=== PATIENT | male | born 1985 | race Caucasian/White ===

== ENCOUNTER 2018-10-18 16:58 | Emergency (ER) | payer OTHER, SELFPAY ==
[2018-10-18 17:09] VITALS: BP 127/80; PULSE 80; RESP 18; TEMP 36.8; O2SAT 96
[2018-10-18 17:27] VITALS: RESP 4
[2018-10-18] MEDS: Albuterol/Ipratropium 3 ML UPD VIAL (17:27)
--- NOTE | 2018-10-18 17:28 | ED.GENADUL_ITS ---
Discharge Plan Disposition Patient Disposition: HOME Condition: Improving Discharge Details Chief Complaint: RespSymp Clinical Impression: URI (upper respiratory infection), Asthma exacerbation, mild Primary Care Provider: Gary Hayes ED Provider: Luis A Ziegler Home Meds and New Rx's Prescriptions: New benzonatate 200 mg capsule 200 mg PO TID PRN (Reason: cough) Qty: 30 RF: 0 prednisone 20 mg tablet 40 mg PO DAILY 4 Days Qty: 8 RF: 0 Continued ProAir HFA 8.5 GM HFA aerosol inhaler 2 puff IN PRN PRNRF: 0 Advair Diskus 250-50 mcg/dose Blister With Device 1 inh INHALATION BID RF: 0 Discharge Instructions Instructions: Asthma (ED), Upper Respiratory Infection (ED) Additional Instructions: If you begin running a fever, have worsening shortness of breath or difficulty breathing, or any worsening symptoms feel free to return to the emergency department for reassessment. Otherwise continue to use your inhalers and take medication as prescribed. Follow-up with your primary care provider if not improving over the next week Referrals: Gary Hayes [Primary Care Provider] - (As needed for reassessment) Discharge Data Discharge Date/Time-TO BE ENTERED AT DEPARTURE: 10/18/18 17:54 Medical Decision Making Patient presenting the emergency department chief complaint of asthma attack. Patient states that on Sunday he started having cold-like symptoms which has now turned into just some sinus pressure and drainage but then today while at work he started noticing some shortness of breath and difficulty breathing. He states that this occurs very frequently with his asthma. He reports that he is used his rescue inhaler significantly throughout the day and used Advair after work which seems to have some improvement but still feeling some tightness in his chest. Patient denies any fever chills, rash, nausea vomiting. Physical exam is consistent with upper respiratory tract infection and mild asthma exacerbation otherwise there is no nuchal rigidity, patient is not septic or toxic in appearance, afebrile, no signs of hypoxia or tachycardia at this time. Patient treated with DuoNeb, which improved his slight expiratory wheezing, and given burst of steroids for total of 5 days. Patient was encouraged to return for any new or worsening symptoms such as fever, worsening shortness of breath, or not improving over the next week otherwise to follow-up with primary care provider as needed for reassessment. After discussion of diagnosis and plan of care patient has no further needs, questions, or concerns and states clear understanding to return to the emergency department for any worsening symptoms. HPI General Mode of arrival: ambulatory . Date/Time Provider Initiated Documentation: 10/18/18 17:27 . Limitations to Documentation: no limitations . Information obtained by: patient and RN notes reviewed . History of Present Illness 33 year old M presents to the emergency department with the chief comp laint of Asthma attack, described as moderate, Quality is described as other (Denies pain or comfort), Patient started experiencing this day(s) (1) and it has been constant. No relieving factors improve symptom(s), No exacerbating factors reported . Patient did receive the following treatments prior to arrival, none Related Data Home Medications Medication Instructions Recorded Confirmed ProAir HFA 2 puff IN PRN PRN 04/29/18 10/18/18 Advair Diskus 1 inh INHALATION BID 10/18/18 10/18/18 benzonatate 200 mg PO TID PRN #30 cap 10/18/18 prednisone 40 mg PO DAILY 4 Days #8 tab 10/18/18 Previous Rx's Medication Instructions Recorded benzonatate 200 mg PO TID PRN #30 cap 10/18/18 prednisone 40 mg PO DAILY 4 Days #8 tab 10/18/18 Allergies Allergy/AdvReac Type Severity Reaction Status Date / Time pollen extracts Allergy Unverified 10/18/18 17:16 General Stated Complaint: RespSymp NICK: 3 Review of Systems Constitutional Denies chills and Reports fever(s) ENT Denies otalgia, Reports nasal congestion, Reports sinus pressure and Reports sore throat Cardiovascular Reports dyspnea Respiratory Denies change in phlegm color, Reports cough, Denies pain with cough and Reports dyspnea Gastrointestinal Denies nausea and Denies vomiting Musculoskeletal Denies joint swelling Integumentary/Breasts Denies rash [facility] Medical History Asthma (Chronic) Social History Smoking/Tobacco Use Status: Never Exam Const General: cooperative, comfortable and no acute distress Orientation: alert, awake and oriented x3 HENMT Head: normal to inspection Ears: hearing grossly normal bilaterally, external ears normal and TM's normal bilaterally Face and sinus: normal facial exam and sinuses nontender Mouth: oral mucosae normal and tongue normal Throat: posterior oropharynx normal, tonsils normal and uvula midline Eyes General: appearance normal, both eyes and all related structures Conjunctivae: conjunctivae normal Sclera: sclerae normal Neck Neck: normal visual inspection, full ROM, no lymphadenopathy, meningismus present and no JVD Resp Effort & Inspection: normal respiratory effort, able to speak in complete sent ences, no audible wheezes, cough Quality of cough: actively coughing and not labored Auscultation: wheezes expiratory wheezes (mild-diffuse) Cardio Rate: regular rate Rhythm: regular rhythm Heart Sounds: S1 normal and S2 normal Skin General skin exam: no rashes or lesions noted and dry skin Rashes: no rashes Neuro General: alert, awake, oriented x3 and gait normal Course Vital Signs Temperature 36.8 C 10/18/18 17:09 Pulse 80 10/18/18 17:09 Respiratory Rate 18 10/18/18 17:09 Blood Pressure 127/80 10/18/18 17:09 Pulse Oximetry 96 10/18/18 17:09 Temperature 36.8 C 10/18/18 17:09 Temperature Source Temporal Artery Scan 10/18/18 17:09 Pulse 80 10/18/18 17:09 Respiratory Rate 18 10/18/18 17:09 Respiratory Effort Nasal Flaring 10/18/18 17:15 Respiratory Depth Normal 10/18/18 17:15 Blood Pressure 127/80 10/18/18 17:09 Blood Pressure Position Sitting 10/18/18 17:09 Pulse Oximetry 96 10/18/18 17:09 Oxygen Delivery Method Room Air 10/18/18 17:09 Oxygen Flow Rate 0 10/18/18 17:09 Pain Level 0 10/18/18 17:09
[2018-10-18] MEDS: predniSONE 20 MG TAB 60 MG PO (17:30)
[2018-10-18 17:52] VITALS: PULSE 78; RESP 15; O2SAT 97
[2018-10-18 17:54] VITALS: O2SAT 97
== END 2018-10-18 17:54 | disposition home or self-care (01) ==
LOC: ER 17:54
PROVIDERS: Emergency Provider Nurse Practitioner Family; PCP Internal Medicine
DX: J45.901 Unspecified asthma with (acute) exacerbation (principal); J06.9 Acute upper respiratory infection, unspecified
CPT/HCPCS: 94640; 99283; J7512; J7620

== ENCOUNTER 2019-07-09 13:32 | Outpatient (CLI) | payer OTHER, SELFPAY | END 2019-07-09 13:52 | PROVIDERS: PCP Internal Medicine; Visit Provider Nurse Practitioner Family | DX: Z79.899 Other long term (current) drug therapy (principal); Z13.6 Encounter for screening for cardiovascular disorders | CPT/HCPCS: 93005; 93010 ==

== ENCOUNTER 2019-09-05 07:52 | Emergency (ER) | payer OTHER, SELFPAY ==
[2019-09-05 07:57] VITALS: BP 129/80; PULSE 88; RESP 18; TEMP 36.8; O2SAT 96
--- NOTE | 2019-09-05 08:17 | W.ED.GENAD ---
Discharge Plan Disposition Patient Disposition: HOME Condition: Stable Discharge Details Chief Complaint: RashLesion Clinical Impression: Tick bite Primary Care Provider: Gary Hayes ED Provider: Emily Mejia Home Meds and New Rx's Prescriptions: Continued albuterol sulfate [ProAir HFA] 8.5 GM HFA aerosol inhaler 2 puff IN PRN PRNRF: 0 fluticasone propion-salmeterol [Advair Diskus] 250-50 mcg/dose Blister With Device 1 inh INHALATION BID RF: 0 benzonatate 200 mg capsule 200 mg PO TID PRN (Reason: cough) Qty: 30 RF: 0 Discharge Instructions Instructions: Tick Bite (ED) Additional Instructions: Wash the area with soap and water and pat dry You can apply topical antibiotic ointment once daily over the next few days but otherwise keep the area clean and dry and apply topical antibiotic ointment if you notice any redness pain or swelling. Follow-up with your primary care doctor or return to the emergency department if you develop fever, chills, body aches, bull's-eye rash or any other concerns. Discharge Data Discharge Physician: Emily Mejia Medical Decision Making 33-year-old male presents for evaluation for tick bite to his left torso. States the tick was present less than 24 hours, not engorged and fully intact and alive when he removed it. Denies any fever or bull's-eye rash, body aches, chills, sore throat, headache or neck pain. As it was not present more than 36 hours and removed under 1 day and not engorged, do not see an indication for prophylaxis. Discussed with patient that if he develops any concerning signs or symptoms of Lyme disease, to follow-up with his primary care doctor return here for evaluation and treatment with antibiotics. Medical Records Medical records reviewed: Yes I reviewed the patient's medical records. HPI General Mode of arrival: ambulatory. Date/Time Provider Initiated Documentation: 09/05/19 08:09. Limitations to Documentation: no limitations. Information obtained by: patient. HPI Narrative: Patient is a 33-year-old male who presents for evaluation for tick bite. Patient states he pulled a tick off with his hands from his left lateral side yesterday. He states the tick was very small, alive and completely intact. He states it was present less than 1 day and was not engorged. He denies any fever, body aches, chills, bull's-eye rash, sore throat, headache, neck pain, chest pain, shortness of breath or abdominal pain. Related Data Home Medications Medication Instructions Recorded Confirmed albuterol sulfate [ProAir HFA] 2 puff IN PRN PRN 04/29/18 09/05/19 benzonatate 200 mg PO TID PRN #30 cap 10/18/18 09/05/19 fluticasone propion-salmeterol 1 inh INHALATION BID 10/18/18 09/05/19 [Advair Diskus] Previous Rx's Medication Instructions Recorded benzonatate 200 mg PO TID PRN #30 cap 10/18/18 Allergies Allergy/AdvReac Type Severity Reaction Status Date / Time pollen extracts Allergy Unverified 09/05/19 08:00 General Stated Complaint: RashLesion NICK: 5 Review of Systems All systems reviewed & are unremarkable except as noted in HPI and below Constitutional Constitutional: Reports as per HPI, Denies chills and Denies fever(s) Eyes Eyes: Denies blurry vision ENT Ears, Nose, Mouth, and Throat: Denies dizziness, Denies sore throat and Denies throat swelling Cardiovascular Cardiovascular: Denies chest pain and Denies dyspnea Respiratory Respiratory: Denies cough and Denies dyspnea Gastrointestinal Gastrointestinal: Denies abdominal pain, Denies diarrhea and Denies vomiting Genitourinary Genitourinary: Denies hematuria and Denies dysuria Musculoskeletal Musculoskeletal: Denies back pain and Denies numbness Integumentary/Breasts Skin/Breast: Reports lesions and Denies rash Neurologic Neurologic: Denies dizziness, Denies focal weakness and Denies numbness Allergic/Immunologic Allergic/Immunologic: Denies throat swelling [facility] Medical History Asthma (Chronic) Social History Smoking/Tobacco Use Status: Never Alcohol Intake: never Substance use type: does not use Do you feel safe at home: Yes Do you feel safe in your relationship?: Yes Exam Const General: cooperative, healthy appearing and no acute distress HENMT Head: normal to inspection Mouth: oral mucosae normal Eyes General: appearance normal, both eyes and all related structures Neck Neck: normal visual inspection Resp Effort & Inspection: normal respiratory effort and able to speak in complete sentences Auscultation: clear to auscultation bilaterally Cardio Rate: regular rate Rhythm: regular rhythm Skin Full body images: 1. 2 x 2 millimeter superficial circular wound with overlying crust developing without surrounding erythema, edema, ecchymosis or any remaining tick. No active bleeding or discharge. Neuro General: alert, awake and oriented x3 Motor: muscle tone normal throughout Extrem General: normal to inspection and full ROM Psych Appearance: grossly normal Affect: normal affect Course Vital Signs Vital signs: Vital Signs Temperature 98.2 F 09/05/19 07:57 Pulse 88 09/05/19 07:57 Respiratory Rate 18 09/05/19 07:57 Blood Pressure 129/80 09/05/19 07:57 Pulse Oximetry 96 09/05/19 07:57 Temperature 98.2 F 09/05/19 07:57 Temperature Source Temporal Artery Scan 09/05/19 07:57 Pulse 88 09/05/19 07:57 Respiratory Rate 18 09/05/19 07:57 Respiratory Effort Non-Labored 09/05/19 07:57 Blood Pressure 129/80 09/05/19 07:57 Blood Pressure Position Sitting 09/05/19 07:57 Pulse Oximetry 96 09/05/19 07:57 Oxygen Delivery Method Room Air 09/05/19 07:57 Oxygen Flow Rate 0 09/05/19 07:57 Pain Level 0 09/05/19 07:57
== END 2019-09-05 08:25 | disposition home or self-care (01) ==
PROVIDERS: Emergency Provider Physician Assistant; PCP Internal Medicine
DX: S20.362A Insect bite (nonvenomous) of left front wall of thorax, initial encounter (principal); W57.XXXA Bitten or stung by nonvenomous insect and other nonvenomous arthropods, initial encounter
CPT/HCPCS: 99282

== ENCOUNTER 2019-11-25 13:33 | Outpatient (REF) | payer OTHER, SELFPAY ==
[2019-11-25 14:29] LABS: ALT 36 U/L (16-63); AST 23 U/L (15-37); Albumin 3.9 g/dL (3.4-5.0); Alkaline Phosphatase 81 U/L (46-116); Anion Gap 6.9 mmol/L (3-11); BUN 15 mg/dL (7-18); Bilirubin, Total 0.5 mg/dL (0.2-1.0); CO2 29.1 mmol/L (21.0-32.0); CREATININE 0.83 mg/dL (0.70-1.30); Calcium 8.5 mg/dL (8.5-10.1); Chloride 106 mmol/L (98-107); Cholesterol 128 mg/dL (<200); Glucose 85 mg/dL (74-106); HDL Cholesterol 60 mg/dL (40-60); Potassium 4.5 mmol/L (3.5-5.1); Sodium 142 mmol/L (136-145); Total Protein 6.8 g/dL (6.4-8.2)
[2019-11-25 14:41] LABS: Triglyceride < 25 mg/dL (<150)
[2019-11-25 15:10] LABS: LDL CHOLESTEROL 59 mg/dL (<100)
== END 2019-11-25 13:53 ==
LOC: LBN 13:33
PROVIDERS: PCP Family Medicine; Visit Provider Family Medicine
DX: Z13.220 Encounter for screening for lipoid disorders (principal)
CPT/HCPCS: 80053; 80061; 83721

== ENCOUNTER 2019-11-26 14:40 | Outpatient (REF) | payer OTHER, SELFPAY ==
[2019-11-26 16:06] LABS: Abs Immature Grans 0.01 k/cumm (0.0-0.09); Absolute Basophil Count 0.05 k/cumm (0.0-0.2); Absolute Eosinophil Count 0.34 k/cumm (0.0-0.7); Absolute Lymphocyte Count 1.42 k/cumm (1.2-3.4); Absolute Monocyte Count 0.78 k/cumm (0.11-0.7); Absolute Neutrophil Count 2.98 k/cumm (1.2-6.7); Basophils % 0.9; Eosinophils % 6.1; HGB 14.6 g/dL (13.5-17.5); Immature Grans % 0.2 %; Lymphocytes % 25.4; Mean Corpuscular Hemoglobin 31.4 pg (27.0-33.0); Mean Corpuscular Volume 92.5 fL (80-95); Mean Platelet Volume 10.5 fL (8.0-11.0); Neutrophils % 53.4; Platelet Count 233 x1000/uL (130-400); RBC 4.65 m/cumm (4.50-6.00); White Blood Cell Count 5.58 k/cumm (4.4-10.8)
[2019-11-26 16:20] LABS: ALT 38 U/L (16-63); AST 34 U/L (15-37); Albumin 4.1 g/dL (3.4-5.0); Alkaline Phosphatase 85 U/L (46-116); Anion Gap 7.9 mmol/L (3-11); BUN 14 mg/dL (7-18); Bilirubin, Total 0.6 mg/dL (0.2-1.0); CO2 28.1 mmol/L (21.0-32.0); CREATININE 0.92 mg/dL (0.70-1.30); Chloride 104 mmol/L (98-107); Glucose 87 mg/dL (74-106); Potassium 4.4 mmol/L (3.5-5.1); Sodium 140 mmol/L (136-145); Total Protein 7.2 g/dL (6.4-8.2)
[2019-11-27 10:15] LABS: HIV-1/2 Ag & Ab Screen Negative (Negative)
[2019-11-27 11:05] LABS: HBs Antibody, Quant 837.3 mIU/mL (See Note); Hepatitis B Surface Ab Positive (See Note); Hepatitis B Surface Ag Negative (Negative)
[2019-11-27 11:24] LABS: Hep A Total Ab w Rflx IgM Negative (Negative)
[2019-11-27 11:27] LABS: Hepatitis C Ab w Rflx HCV PCR Negative (Negative)
[2019-11-27 11:45] LABS: Syphilis Serology (RPR) Negative (Negative)
[2019-11-27 12:19] LABS: Hep B Core Antibody Negative (Negative)
== END 2019-11-26 15:00 ==
LOC: LBO 14:40
PROVIDERS: PCP Family Medicine; Visit Provider Nurse Practitioner Family
DX: F11.20 Opioid dependence, uncomplicated (principal); Z79.899 Other long term (current) drug therapy; Z11.4 Encounter for screening for human immunodeficiency virus [HIV]; Z11.59 Encounter for screening for other viral diseases
CPT/HCPCS: 80053; 86704; 86706; 86709; 86803; 87340; 87389; 85025; 86592

== ENCOUNTER 2022-09-22 13:38 | Emergency (ER) | payer MEDICAID, SELFPAY ==
[2022-09-22 13:42] VITALS: BP 144/91; PULSE 88; RESP 14; TEMP 37.6; O2SAT 100
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
[2022-09-22 14:43] LABS: Source Nasal/Nares
[2022-09-22 14:48] LABS: Abs Immature Grans 0.03 10^3/uL (0.0-0.06); Absolute Basophil Count 0.07 10^3/uL (0.0-0.2); Absolute Eosinophil Count 0.05 10^3/uL (0.0-0.7); Absolute Lymphocyte Count 0.83 10^3/uL (1.2-3.4); Absolute Monocyte Count 0.57 10^3/uL (0.1-0.8); Absolute Neutrophil Count 11.81 10^3/uL (1.2-6.7); Basophils % 0.5; Eosinophils % 0.4; HCT 40.9 % (40.0-50.0); HGB 14.6 g/dL (13.5-17.5); Immature Grans % 0.2; Lymphocytes % 6.2; MCH 31.1 pg (27.0-33.0); MCHC 35.7 % (32.0-36.0); MCV 87 fL (80-95); MPV 9.6 fL (8.0-11.0); Monocytes % 4.3; Neutrophils % 88.4; Platelet Count 326 10^3/uL (130-400); RBC 4.69 10^6/uL (4.36-5.78); RDW 11.3 % (11.8-14.1); RDW-SD 35.9 fL; WBC 13.36 10^3/uL (4.4-10.8)
[2022-09-22 14:49] LABS: Bilirubin Negative (Negative); Blood Negative (Negative); Clarity Clear (Clear); Glucose Negative (Negative); Ketones 40 mg/dL (Negative); Leukocyte Esterase Negative (Negative); Nitrite Negative (Negative); Specific Gravity >= 1.030 (1.005-1.025); Urobilinogen 0.2 EU/dL (Up TO 0.2)
[2022-09-22 15:04] LABS: *AMPHETAMINES SCREEN URINE Negative (Negative); *BARBITURATES SCREEN URINE Negative (Negative); *BENZODIAZEPINES SCREEN URINE Negative (Negative); Cannabinoids THC Negative (Negative); Cocaine Screen,Urine Positive (Negative); METHADONE URINE SCREEN Negative (Negative); OPIATES URINE SCREEN Negative (Negative)
[2022-09-22 15:05] LABS: Tricyclic Antidepressants Negative (Negative)
[2022-09-22 15:13] LABS: ALT 15 U/L (16-63); AST 17 U/L (15-37); Albumin 4.4 g/dL (3.4-5.0); Alkaline Phosphatase 71 U/L (46-116); Anion Gap 7.4 mmol/L (3-11); BUN 17 mg/dL (7-18); Bilirubin, Total 0.7 mg/dL (0.2-1.0); CO2 29.6 mmol/L (21.0-32.0); CREATININE 0.9 mg/dL (0.70-1.30); Calcium 9.2 mg/dL (8.5-10.1); Chloride 101 mmol/L (98-107); Estimated GFR 111.42 (mL/min/1.73m2); Glucose 114 mg/dL (74-106); Sodium 138 mmol/L (136-145); TSH (W/Ref FT4) 0.59 uIU/mL (0.36-3.74); Total Protein 8.1 g/dL (6.4-8.2)
[2022-09-22 15:14] LABS: ETHANOL BLOOD < 3.0 mg/dL (<10)
[2022-09-22 15:17] LABS: COVID-19 PCR Negative (Negative)
[2022-09-22 15:20] LABS: Salicylate < 2.8 mg/dL (<2.8)
[2022-09-22 15:21] LABS: Acetaminophen < 2 ug/mL (10-30)
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
[2022-09-22] MEDS: LORazepam 0.5 MG TAB PO (16:29)
--- NOTE | 2022-09-22 16:29 | NUR.NOTE ---
Nursing Note: Pt exhibiting increased agitation, pacing around the room stating im just gonna leave, he wants to go home and try to get some rest. He is very angry that he is still here. He thought that he was going to get to go home. He agreed to take ativan to try to help him calm down. Ativan 0.5mg Ativan given PO per order.
[2022-09-22] MEDS: LORazepam 1 MG TAB PO (17:45)
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
[2022-09-22] MEDS: diazePAM 5 MG TAB PO (20:03)
[2022-09-22] MEDS: Ondansetron O.D.T. 4 MG TABEF PO (20:05)
[2022-09-22] MEDS: cloNIDine 0.1 MG TAB PO (20:06)
[2022-09-23] MEDS: Albuterol HFA 8 GM 60 PUFF INH IH (06:07)
[2022-09-23] MEDS: cloNIDine 0.1 MG TAB PO ×2 (07:56→21:24)
[2022-09-23] MEDS: LORazepam 1 MG TAB PO (07:56)
--- NOTE | 2022-09-23 09:02 | CMSP_ITS ---
- If Service Date Differs Date of service: 09/23/22 Time of Service: 09:02 Care Management Safety Plan Status: Involuntary (Awaiting 2nd Certification planned for 1230 today.) - Reason for Wait Reason for Wait: Inpatient Admission INVOLUNTARY FOR INPATIENT PSYCHIATRIC STABILIZATION. INVOLUNTARY Safety plan has been established to meet the needs of the patient, and consideration of the care team, to adhere to patient goals, identify restrictions based on behavioral status, address nutrition, and determine allowed personal belongings, tools for hygiene and personal care. Determine lev el of activity including ambulation, level of supervision, visitors, and determine privileges based on behaviors and level of engagement by pt. 0900 Adam was lying in bed, cuddled into the covers. He immediately recognized this machine sign writer from the community and stated Peng, [place]. CM reviewed involuntary status with Adam who was at first resistant, but ultimately accepting of information. CM reviewed patient rights and 2nd Certification process. When asked, Adam reported everyone at [facility] has been treating him well, he just wants to return home. He also reported that no one believes him and they all think I'm crazy. CM validated Adam's sentiments and offered support, reviewed ability to connect as needed during his stay. CM discussed with Dr. Mares who reviewed concerns around SAMANTHA withdrawal components, and current treatment of benzos. CPSO Silvina reports Adam has been quite anxious and fidgety this morning. [facility] Dayna called to advise 2nd Certification is planned for 1230 today. 1400: Involuntary status certified by [facility] Psychiatrist. MARTY Mcintosh from [facility] notified this machine sign writer that paperwork will be sent to [facility] ED, and referrals placed throughout the state. INVOLUNTARY SAFETY PLAN: 1. Will remain on SI/HI precautions. In Paper Clothes 2. Will remain in room under direct supervision of one-on-one staff at all times provided by CPSO; DAVID, APPLIANCE SERVICER supervisor garage. 3. May have paper cups, plates, finger foods as well as a cardboard spoon for meals. 4. Follow [facility] Management of the Admitted Behavioral Health Patient policy. 5. Comfort bath system, shower permitted with escort at RN discretion. 6. No personal belongings 7. Visitors: limited to significant other, New and family at this time, per patient preference and at RN discretion 8. Activities: Soft items permitted at RN discretion 9. Bathroom privileges with escort/supervision. 10. Phone: contact via [facility] cordless phone permitted at RN discretion. 11. Due to INVOLUNTARY status, patient is being held at [facility] by the Department of Mental Health ([facility]) until 2nd certification by [facility] Psychiatrist can be performed (within 24 hours). Staff will provide de-escalation support (CPI) as needed. If patient wishes to leave [facility], staff will contact [facility] Crisis Screener ([phone]) and On-Call Flatwork Catcher ([phone]) as soon as possible. In the event of elopement, notify [facility] Police ([phone]). Patient is currently involuntarily at [facility]. [facility] Frontline Shingle Packer will continue seeking placement. Please contact the Deburring Technician Flatwork Catcher ([phone]) for any needed changes to Safety Plan. Safety plan has been provided to interdepartmental care team. Patient will be transported by content checker at time of discharge.
--- NOTE | 2022-09-23 09:02 | PDOC.CMSAFED ---
- If Service Date Differs Date of service: 09/23/22 Time of Service: 09:02 Care Management Safety Plan Status: Involuntary (Awaiting 2nd Certification planned for 1230 today.) - Reason for Wait Reason for Wait: Inpatient Admission INVOLUNTARY FOR INPATIENT PSYCHIATRIC STABILIZATION. INVOLUNTARY Safety plan has been established to meet the needs of the patient, and consideration of the care team, to adhere to patient goals, identify restrictions based on behavioral status, address nutrition, and determine allowed personal belongings, tools for hygiene and personal care. Determine level of activity including ambulation, level of supervision, visitors, and determine privileges based on behaviors and level of engagement by pt. 0900 Adam was lying in bed, cuddled into the covers. He immediately recognized this publicity writer from the community and stated Peng, [place]. CM reviewed involuntary status with Adam who was at first resistant, but ultimately accepting of information. CM reviewed patient rights and 2nd Certification process. When asked, Adam reported everyone at [facility] has been treating him well, he just wants to return home. He also reported that no one believes him and they all think I'm crazy. CM validated Adam's sentiments and offered support, reviewed ability to connect as needed during his stay. CM discussed with Dr. Mares who reviewed concerns around SAMANTHA withdrawal components, and current treatment of benzos. CPSO Silvina reports Adam has been quite anxious and fidgety this morning. [facility] Dayna called to advise 2nd Certification is planned for 1230 today. 1400: Involuntary status certified by [facility] Psychiatrist. MARTY Mcintosh from [facility] notified this publicity writer that paperwork will be sent to [facility] ED, and referrals placed throughout the state. INVOLUNTARY SAFETY PLAN: 1. Will remain on SI/HI precautions. In Paper Clothes 2. Will remain in room under direct supervision of one-on-one staff at all times provided by CPSO; DAVID, DATA CAPTURE CLERK foreign clerk. 3. May have paper cups, plates, finger foods as well as a cardboard spoon for meals. 4. Follow [facility] Management of the Admitted Behavioral Health Patient policy. 5. Comfort bath system, shower permitted with escort at RN discretion. 6. No personal belongings 7. Visitors: limited to significant other, New and family at this time, per patient preference and at RN discretion 8. Activities: Soft items permitted at RN discretion 9. Bathroom privileges with escort/supervision. 10. Phone: contact via [facility] cordless phone permitted at RN discretion. 11. Due to INVOLUNTARY status, patient is being held at [facility] by the Department of Mental Health ([facility]) until 2nd certification by [facility] Psychiatrist can be performed (within 24 hours). Staff will provide de-escalation support (CPI) as needed. If patient wishes to leave [facility], staff will contact [facility] Crisis Screener ([phone]) and On-Call Spare Hand Carding ([phone]) as soon as possible. In the event of elopement, notify [facility] Police ([phone]). Patient is currently involuntarily at [facility]. [facility] Frontline Dance Therapist will continue seeking placement. Please contact the Paper Bags Sewing Machine Operator Spare Hand Carding ([phone]) for any needed changes to Safety Plan. Safety plan has been provided to interdepartmental care team. Patient will be transported by bundle packer at time of discharge.
[2022-09-23 10:06] VITALS: BP 119/75; PULSE 96; RESP 19; TEMP 37; O2SAT 96
[2022-09-23] MEDS: diazePAM 5 MG TAB PO ×3 (10:14→15:39)
[2022-09-23] MEDS: Ondansetron O.D.T. 4 MG TABEF (14:26)
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
[2022-09-23 23:57] VITALS: BP 128/80; PULSE 66; RESP 16; TEMP 37; O2SAT 98
[2022-09-24] MEDS: Albuterol HFA 8 GM 60 PUFF INH IH ×3 (00:20→23:52)
[2022-09-24] MEDS: LORazepam 1 MG TAB PO ×2 (00:27→19:09)
[2022-09-24] MEDS: Droperidol 5 MG/2 ML VIAL 1.25 MG IM (01:11)
[2022-09-24] MEDS: cloNIDine 0.1 MG TAB PO ×2 (08:13→19:09)
--- NOTE | 2022-09-24 08:16 | PDOC.CMSAFED ---
- If Service Date Differs Date of service: 09/24/22 Time of Service: 08:16 Care Management Safety Plan Status: Involuntary - Reason for Wait Reason for Wait: Inpatient Admission INVOLUNTARY FOR INPATIENT PSYCHIATRIC STABILIZATION. INVOLUNTARY Safety plan has been established to meet the needs of the patient, and consideration of the care team, to adhere to patient goals, identify restrictions based on behavioral status, address nutrition, and determine allowed personal belongings, tools for hygiene and personal care. Determine level of activity including ambulation, level of supervision, visitors, and determine privileges based on behaviors and level of engagement by pt. [facility] Dayna called to advise referrals are pending and Adam continues to meet criteria to be held involuntarily. INVOLUNTARY SAFETY PLAN: 1. Will remain on SI/HI precautions. In Paper Clothes 2. Will remain in room under direct supervision of one-on-one staff at all times provided by [employer]; DAVID, [employer] senior insight manager. 3. May have paper cups, plates, finger foods as well as a cardboard spoon for meals. 4. Follow [facility] Management of the Admitted Behavioral Health Patient policy. 5. Comfort bath system, shower permitted with escort at RN discretion. 6. No personal belongings 7. Visitors: limited to significant other, New and family at this time, per patient preference and at RN discretion 8. Activities: Soft items permitted at RN discretion 9. Bathroom privileges with escort/supervision. 10. Phone: contact via [facility] cordless phone permitted at RN discretion. 11. Due to INVOLUNTARY status, patient is being held at [facility] by the Department of Mental Health ([facility]) until placement is secured or involuntary status is revoked. Staff will provide de-escalation support (CPI) as needed. If patient wishes to leave [facility], staff will contact [facility] Crisis Screener ([phone]) and On-Call Corporate Ethics Officer ([phone]) as soon as possible. In the event of elopement, notify [place] [employer] ([phone]). Patient is currently involuntarily at [facility]. [facility] Frontline Community Marketing Coordinator will continue seeking placement. Please contact the District Associate Judge Corporate Ethics Officer ([phone]) for any needed changes to Safety Plan. Safety plan has been provided to interdepartmental care team. Patient will be transported by [facility] at time of discharge.
[2022-09-24 10:11] VITALS: BP 127/80; PULSE 73; TEMP 37.1; O2SAT 96
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
[2022-09-24] MEDS: Ibuprofen 800 MG TAB PO (14:03)
[2022-09-25] MEDS: Droperidol 5 MG/2 ML VIAL 1.25 MG IM (01:25)
[2022-09-25] MEDS: cloNIDine 0.1 MG TAB PO (08:48)
[2022-09-25] MEDS: Ondansetron O.D.T. 4 MG TABEF PO ×2 (08:49→12:54)
--- NOTE | 2022-09-25 10:56 | NUR.NOTE ---
Nursing Note: Patient went upstairs to shower with appropriate staffing, EVS was cleaning the room and found a powdered substance on the floor, substance was cleaned up, bed was looked through and a small glass pipe and more white powdered substance found within the bed. Nursing service and repair supervisor has been told.
--- NOTE | 2022-09-25 11:02 | NUR.NOTE ---
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
== END 2022-09-25 17:55 ==
PROVIDERS: Physician Assistant; Emergency Provider Student in an Organized Health Care Education/Training Program; PCP Family Medicine
DX: F19.959 Other psychoactive substance use, unspecified with psychoactive substance-induced psychotic disorder, unspecified (principal); F22 Delusional disorders; F60.0 Paranoid personality disorder; J45.909 Unspecified asthma, uncomplicated; F90.9 Attention-deficit hyperactivity disorder, unspecified type; D72.829 Elevated white blood cell count, unspecified; Z20.822 Contact with and (suspected) exposure to COVID-19
CPT/HCPCS: 80053; 80307; 87635; 96372; 99285; 80320; 80329; 81003; 84443; 85025; J1790

== ENCOUNTER 2023-04-01 03:02 | Emergency (ER) | payer MEDICAID, SELFPAY ==
[2023-04-01 03:04] VITALS: BP 118/81; PULSE 83; RESP 20; TEMP 36.8; O2SAT 100
--- NOTE | 2023-04-01 03:15 | DI.CT_ITS ---
Exam(s) CT ABDOMEN PELVIS W EXAM: CT ABDOMEN PELVIS W CLINICAL HISTORY: mid abdomen pain, n/v TECHNIQUE: Imaging Protocol: Axial computed tomography images with coronal and sagittal reformatted images were created and reviewed CONTRAST MATERIAL: Intravenous: Omnipaque 350 Contrast volume:100 mL Oral: No COMPARISON: No exams were available for comparison FINDINGS: ABDOMEN: Lung Bases: Normal where visualized. Liver: Normal density. No measurable mass. Portal, Superior Mesenteric, and Splenic Veins: Unremarkable. Gallbladder and Biliary Tract: No calculi are seen. There is no biliary ductal dilatation. The gall bladder is contracted limiting evaluation. The apparent gallbladder wall thickening may be due to un derdistention. Pancreas: Normal density, no abnormal calcifications or inflammatory process. Spleen: Normal. Adrenals: No masses seen. Kidneys: Normal size, contour and axis. No radiodense stones or obstructive uropathy. No masses seen. Abdominal Aorta: Abdominal portion non-dilated. Bowel: There is bowel wall thickening seen in the sigmoid colon and rectum. This may be due to under distention but colitis cannot be excluded. There is no evidence of bowel obstruction. No evidence o f appendicitis. There is distention of the stomach and the proximal duodenum proximal to the SMA eddie eoff. The aorta mesenteric angle is 17 degrees. The aorta mesenteric distance is 5 mm. Peritoneal Cavity: No ascites, collection or mesenteric inflammatory response. No free air. Lymph Nodes: Within normal limits. Bones: Within normal limits for the patient's age. Soft Tissues: Unremarkable. PELVIS: Bladder: Symmetric distention, no gross wall thickening. Reproductive Organs: Unremarkable as visualized. Lymph Nodes: Within normal limits. Bones: Within normal limits for the patient's age. IMPRESSION: 1. No acute abdominal or pelvic process. Relative distention of the stomach and proximal duodenum with narrowing distal to the SMA takeoff. Aorta mesenteric angle and distance measurements raise a q uestion of SMA syndrome. 2. Question of gallbladder wall thickening. No stones or biliary ductal dilatation is seen. This ma y be due to underdistention. Right upper quadrant ultrasound may be considered if clinical symptoms suggest. 3. Bowel wall thickening seen in the large bowel. This may be due to underdistention. Colitis canno t be excluded. RADIATION DOSE DELIVERED: 671.2mGy.cm Total DLP DATA REPOSITORY: All CT scans at this facility are submitted to the National Radiology Data Registry (NRDR) Dose Index Registry (DIR) with the [employer] (ACR). RADIATION OPTIMIZATION: All CT scans at this facility use at least one of these dose optimization te chniques: automated exposure control; mA and/or kV adjustment per patient size (includes targeted exa ms where dose is matched to clinical indication); or iterative reconstruction.
[2023-04-01] MEDS: Ondansetron 4 MG/2 ML VIAL IVP (03:17)
[2023-04-01] MEDS: Normal Saline 1,000 ML 1000 ML IV (03:17)
[2023-04-01] MEDS: Ketorolac 15 MG/ML VIAL IVP (03:17)
--- NOTE | 2023-04-01 03:17 | W.ED.GENAD ---
Discharge Plan Disposition Patient Disposition: Home Condition: Stable Discharge Details Clinical Impression: Abdominal pain, Colitis Primary Care Provider: Fernando Morgan ED Provider: Rex Waters Home Meds and New Rx's Prescriptions: New amoxicillin-pot clavulanate 875-125 mg tablet 1 tab PO BID Qty: 14 0RF ondansetron 4 mg tablet,disintegrating 4 mg PO Q8H PRN (Reason: nausea and vomiting) Qty: 30 0RF Continued fluticasone propion-salmeterol [Advair Diskus] 250-50 mcg/dose blister with device 1 inh INHALATION BID Qty: 60 3RF albuterol sulfate [Ventolin HFA] 90 mcg/actuation HFA aerosol inhaler 2 puff inhalation Q6H PRN (Reason: shortness of breath or wheezing) Qty: 8.5 6RF quetiapine [Seroquel] 400 mg tablet 400 mg PO BID Patient Comments: 10/03/22 Discharge from [facility] Discharge Instructions Instructions: Colitis (ED) Additional Instructions: follow up with your primary care provider or express care if not improving within a week if you feel more ill, have severe worsening pain or persistent vomiting return to the emergency department Medical Decision Making 37 yo male who has a hx of susbstance abuse including opiates and crack per patient, last used heroin 3 days ago, comes in with n/v/d for 3 days and periumbilical pain. He denies fevers, chills, chest pain. He can't think of anything that makes the symptoms better or worse. He arrives stable, caox4 speaking clearly. He has a soft abdomen, nondistended, has tenderness in the mid abdomen with palpation no guarding or rebound. The symptoms could be from opiate withdrawal but will evaluate for other potential causes such as pancreatitis, appendicitis, sbo with cbc, cmp, lipase, ct abdomen/pelvis. labs show wbc of 20 otherwise no significant findings. CT shows likely colitis which is consistent with his symptoms. They also comment relative distention of the stomach and proximal duodenum and to correte clinically with sma syndrome, pt denies any early satiety or belching and weight loss so doubt this. He has no ruq tenderness so doubt cholecystitis. Pt is sleeping and awakens easily to voice, no tenderness now on exam. Suspect colitis vs gastroenteritis, given his wbc of 20 will start on augmentin. HE is stable for d/c and was advised to f/u with pcp, return precautions given Differential Diagnosis Differential Diagnosis: opiate withdrawal, pancreatitis, appendicitis Medical Records Medical records reviewed: Yes I reviewed the patient's medical records. Imaging Data Radiologic Study: Attestation: I personally reviewed and interpreted this imaging study as follows: Imaging: CT Scan Radiologist's impression: IMPRESSION: 1. Fluid-filled small and large bowel, nonspecific but may reflect mild inflammation. Apparent colonic thickening, suboptimally evaluated secondary to incomplete distension but cannot exclude colitis. 2. Relative distension of the stomach and proximal duodenum with narrowing in the distal duodenum. Correlate clinically for SMA syndrome. 3. Mural prominence of the gallbladder, most likely secondary to contraction. Right upper quadrant ultrasound may be considered if cholecystitis is of clinical concern. Lab Data Lab results reviewed: Yes I reviewed the patient's lab results. HPI General Mode of arrival: ambulatory. Date/Time Provider Initiated Documentation: 04/01/23 03:02. Limitations to Documentation: no limitations. Information obtained by: patient. History of Present Illness 37 year old M presents to the emergency department with the chief complaint of n/v/d, described as moderate, Patient started experiencing this day(s) (3) and it has been constant. No relieving factors improve symptom(s), No exacerbating factors reported . Patient notes denies fever/chills and shortness of breath. Patient did receive the following treatments prior to arrival, none Related Data Home Medications Medication Instructions Recorded Confirmed fluticasone 250 mcg-salmeterol 50 1 inh inhalation BID #60 ea 04/13/22 04/01/23 mcg/dose blistr powdr for inhalation (Advair Diskus) albuterol sulfate 90 mcg/actuation 2 puff inhalation Q6H PRN 09/29/22 04/01/23 aerosol inhaler (Ventolin HFA) shortness of breath or wheezing #8.5 grams quetiapine 400 mg tablet (Seroquel) 400 mg PO BID 10/11/22 04/01/23 amoxicillin 875 mg-potassium 1 tab PO BID #14 tabs 04/01/23 clavulanate 125 mg tablet ondansetron 4 mg disintegrating 4 mg PO Q8H PRN nausea and 04/01/23 tablet vomiting #30 tabs Previous Rx's Medication Instructions Recorded fluticasone 250 mcg-salmeterol 50 1 inh inhalation BID #60 ea 04/13/22 mcg/dose blistr powdr for inhalation (Advair Diskus) albuterol sulfate 90 mcg/actuation 2 puff inhalation Q6H PRN 09/29/22 aerosol inhaler (Ventolin HFA) shortness of breath or wheezing #8.5 grams amoxicillin 875 mg-potassium 1 tab PO BID #14 tabs 04/01/23 clavulanate 125 mg tablet ondansetron 4 mg disintegrating 4 mg PO Q8H PRN nausea and 04/01/23 tablet vomiting #30 tabs Allergies Allergy/AdvReac Type Severity Reaction Status Date / Time pollen extracts Allergy Intermediate asthma Verified 09/22/22 14:07 General Stated Complaint: Abd Prob NICK: 3 Review of Systems All systems reviewed & are unremarkable except as noted in HPI and below Constitutional Constitutional: Denies chills, Denies fever(s) and Denies weakness Cardiovascular Cardiovascular: Denies chest pain and Denies dyspnea Respiratory Respiratory: Denies cough and Denies dyspnea Gastrointestinal Gastrointestinal: Reports abdominal pain and Reports vomiting Musculoskeletal Musculoskeletal: Denies joint swelling Neurologic Neurologic: Denies weakness PFSH All Active Problems (Updated 04/01/23 @ 05:23 by Rex Waters MD) Abdominal pain (Acute) Colitis (Acute) Opiate dependence (Chronic) Started at [facility] in 2019 Asthma (Chronic) ADHD (Chronic) Marijuana abuse (Chronic) Medical History (Updated 04/01/23 @ 05:23 by Rex Waters MD) Acute paronychia of finger of left hand (~08/2022) 10/03/22 DH Derm, L 2nd Finger Social History Smoking/Tobacco Use Status: Never Smoking risk assessment performed?: Yes Alcohol Intake: never Drug use: Daily Substance use type: marijuana, crack/cocaine and heroin Details: Pt states that he uses heroin daily but hasn't in the last 3 days. 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[employer], [employer] Pets and animals: Yes Pets and animals: dog(s) Sexually active: Yes Do you think of yourself as: straight/heterosexual Current gender identity: male What is your relationship status?: living with partner How often do you talk on the phone with friends or family?: three or more times per week How often do you get together with friends or relatives?: once per week Do you belong to any clubs or organized social groups?: no Panel score (0-1 are the most socially isolated patients): 2 What type of physical activity do you participate in: other Details: active when working Duration: > 90 minutes/day Frequency: daily Chanel/Moravian: None Special chanel needs: No Seatbelt use: always Helmet use: Yes Drive intox or ride w/intox show horse driver: No Do you feel safe at home: Yes Do you feel safe in your relationship?: Yes Additional Social history: Homeless Exam Const General: no acute distress Orientation: alert HENMT Head: normal to inspection Ears: external ears normal General nose exam: external nose normal Mouth: moist mucous membranes Eyes General: appearance normal, both eyes and all related structures Neck Neck: normal visual inspection Resp Effort & Inspection: normal respiratory effort and able to speak in complete sentences Cardio Rate: regular rate GI Palpation: soft and tender Skin General skin exam: no rashes or lesions noted Neuro General: patient alert and patient oriented x3 Extrem General: normal to inspection Psych Mental Status: mental status grossly normal Course Vital Signs Vital signs: Vital Signs Temperature 36.8 C 04/01/23 03:04 Pulse 83 04/01/23 03:04 Respiratory Rate 20 04/01/23 03:04 Blood Pressure 118/81 04/01/23 03:04 Pulse Oximetry 100 04/01/23 03:04 Temperature 36.8 C 04/01/23 03:04 Temperature Source Oral 04/01/23 03:04 Pulse 83 04/01/23 03:04 Respiratory Rate 20 04/01/23 03:04 Respiratory Effort Normal, Non-Labored 04/01/23 03:10 Blood Pressure 118/81 04/01/23 03:04 Blood Pressure Position Sitting 04/01/23 03:04 Pulse Oximetry 100 04/01/23 03:04 Oxygen Delivery Method Room Air 04/01/23 03:04 Oxygen Flow Rate 0 04/01/23 03:04 Pain Level 10 04/01/23 03:04
[2023-04-01 03:37] LABS: Abs Immature Grans 0.14 10^3/uL (0.0-0.06); Absolute Lymphocyte Count 0.89 10^3/uL (1.2-3.4); Basophils % 0.3; Eosinophils % 0.3; HCT 42.8 % (40.0-50.0); HGB 15.1 g/dL (13.5-17.5); Immature Grans % 0.7; Lymphocytes % 4.3; MCH 30.8 pg (27.0-33.0); MCHC 35.3 % (32.0-36.0); MCV 87 fL (80-95); MPV 9.9 fL (8.0-11.0); Monocytes % 7.7; Neutrophils % 86.7; Platelet Count 318 10^3/uL (130-400); RDW 11.9 % (11.8-14.1); RDW-SD 38.5 fL; WBC 20.79 10^3/uL (4.4-10.8)
[2023-04-01 03:45] LABS: Absolute Basophil Count 0.06 10^3/uL (0.0-0.2); Absolute Eosinophil Count 0.06 10^3/uL (0.0-0.7); Absolute Neutrophil Count 18.02 10^3/uL (1.2-6.7)
[2023-04-01 03:47] LABS: ALT 17 U/L (16-63); AST 14 U/L (15-37); Albumin 3.3 g/dL (3.4-5.0); Alkaline Phosphatase 95 U/L (46-116); Anion Gap 10.8 mmol/L (3-11); BUN 13 mg/dL (7-18); Bilirubin, Total 0.6 mg/dL (0.2-1.0); CO2 27.2 mmol/L (21.0-32.0); CREATININE 1.3 mg/dL (0.70-1.30); Calcium 9.4 mg/dL (8.5-10.1); Chloride 94 mmol/L (98-107); Estimated GFR 71.67 (mL/min/1.73m2); Glucose 146 mg/dL (74-106); Lipase 34 U/L (16-77); Potassium 3.7 mmol/L (3.5-5.1); Sodium 132 mmol/L (136-145); TSH (W/Ref FT4) 0.13 uIU/mL (0.36-3.74); Total Protein 8.4 g/dL (6.4-8.2)
[2023-04-01 03:51] LABS: ETHANOL BLOOD < 3.0 mg/dL (<10)
[2023-04-01 04:10] LABS: FREE T4 1.24 ng/dL (0.76-1.46)
[2023-04-01] MEDS: Normal Saline - Diluent 50 ML VIAL IJ (04:28)
[2023-04-01] MEDS: Omnipaque 350 MG/ML 100 ML BTL IJ (04:28)
--- NOTE | 2023-04-01 04:50 | DI.VRAD_ITS ---
PROCEDURE INFORMATION: Exam: CT Abdomen And Pelvis With Contrast Exam date and time: 04/01/2023 4:19 AM Age: 37 years old Clinical indication: Vomiting TECHNIQUE: Imaging protocol: Computed tomography of the abdomen and pelvis with contrast. Contrast material: OMNIPAQUE 350; Contrast volume: 100 ml; Contrast route: INTRAVENOUS (IV); COMPARISON: No relevant prior studies are available for comparison. FINDINGS: Limitations: Mild motion artifact. Liver: No focal hepatic lesion identified. Gallbladder and bile ducts: Contracted gallbladder with mural prominence. Pancreas: No CT evidence for acute pancreatitis. Spleen: Borderline splenomegaly. Adrenal glands: No mass. Kidneys and ureters: No hydronephrosis or evidence for pyelonephritis. Stomach and bowel: Relative distension of the stomach and proximal duodenum with abrupt narrowing in the distal duodenum. No intestinal obstruction is evident. Fluid in nondilated small bowel, nonspecific. Fluid-filled colon. The colon appears mildly thickened but is poorly evaluated secondary to non opacification and incomplete distension. Appendix: No evidence of appendicitis. Intraperitoneal space: No free air. Vasculature: No abdominal aortic aneurysm. Lymph nodes: Nonspecific mesenteric lymph nodes. Urinary bladder: No acute findings. Reproductive: No acute findings. Bones/joints: No pertinent acute abnormality seen. Soft tissues: No pertinent acute abnormality seen. IMPRESSION: 1. Fluid-filled small and large bowel, nonspecific but may reflect mild inflammation. Apparent colonic thickening, suboptimally evaluated secondary to incomplete distension but cannot exclude colitis. 2. Relative distension of the stomach and proximal duodenum with narrowing in the distal duodenum. Correlate clinically for SMA syndrome. 3. Mural prominence of the gallbladder, most likely secondary to contraction. Right upper quadrant ultrasound may be considered if cholecystitis is of clinical concern. Dictated and Authenticated by: Jannie Carrion MD. Ordering:NELSON Goodman MD
[2023-04-01 05:04] LABS: Bilirubin Negative (Negative); Blood Negative (Negative); Clarity Clear (Clear); Glucose Negative (Negative); Ketones Negative (Negative); Leukocyte Esterase Negative (Negative); Nitrite Negative (Negative); Specific Gravity <= 1.005 (1.005-1.025); Urobilinogen 0.2 mg/dL (Up to 0.2)
[2023-04-01 05:16] LABS: *AMPHETAMINES SCREEN URINE Negative (Negative); *BARBITURATES SCREEN URINE Negative (Negative); *BENZODIAZEPINES SCREEN URINE Negative (Negative); Cannabinoids THC Negative (Negative); Cocaine Screen,Urine Positive (Negative); METHADONE URINE SCREEN Negative (Negative); OPIATES URINE SCREEN Negative (Negative)
[2023-04-01 05:24] LABS: Tricyclic Antidepressants Negative (Negative)
[2023-04-01] MEDS: Amoxicillin 875/Clav. 125 TAB PO (05:24)
[2023-04-01 05:33] LABS: Bacteria Negative HPF (Negative); C & S Indicated? No; Casts Negative LPF (Negative); Crystals Negative HPF (Negative); Epithelial Cells Rare HPF (Negative); Mucus Negative (Negative); RBC 0-2 HPF (0-2); WBC 0-2 HPF (0-5)
[2023-04-01 05:39] VITALS: BP 104/65; PULSE 66; RESP 18; TEMP 36.8; O2SAT 96
--- NOTE | 2023-04-01 10:21 | NUR.NOTE ---
Nursing Note: Faxed information to requested by patient to send to [facility] Admissions to fax [phone].
== END 2023-04-01 05:42 | disposition home or self-care (01) ==
PROVIDERS: Emergency Provider Emergency Medicine; PCP Family Medicine
DX: K52.9 Noninfective gastroenteritis and colitis, unspecified (principal); R11.10 Vomiting, unspecified; R10.9 Unspecified abdominal pain
CPT/HCPCS: 36415; 80053; 80307; 83690; 96361; 96374; 96375; 99285; 74177; 80320; 81003; 81015; 83735; 84439; 84443; 85025; 99284; J1885; J2405; J3490

== ENCOUNTER 2023-04-01 07:42 | Emergency (ER) | payer MEDICAID, SELFPAY ==
[2023-04-01 08:00] VITALS: BP 113/75; PULSE 63; RESP 16; TEMP 36.9; O2SAT 98
[2023-04-01] MEDS: Buprenorphine/Naloxone 8 mg/2 mg FILM 1 EACH SL (09:36)
--- NOTE | 2023-04-01 10:05 | NUR.NOTE ---
Nursing Note: Faxed requested records (visit summary, MD note and med list) to admissions at [phone] Fax. Phone number [phone]
--- NOTE | 2023-04-01 10:08 | NUR.NOTE ---
Nursing Note: Page done to [facility] and patient spoke with Jordana from [facility]
--- NOTE | 2023-04-01 10:25 | W.ED.GENAD ---
Discharge Plan Disposition Patient Disposition: Home Condition: Stable Discharge Details Clinical Impression: Acute streptococcal pharyngitis, Acute opioid withdrawal Primary Care Provider: Fernando Morgan ED Provider: Ritesh Mares Home Meds and New Rx's Prescriptions: Continued fluticasone propion-salmeterol [Advair Diskus] 250-50 mcg/dose blister with device 1 inh INHALATION BID Qty: 60 3RF albuterol sulfate [Ventolin HFA] 90 mcg/actuation HFA aerosol inhaler 2 puff inhalation Q6H PRN (Reason: shortness of breath or wheezing) Qty: 8.5 6RF amoxicillin-pot clavulanate 875-125 mg tablet 1 tab PO BID Qty: 14 0RF ondansetron 4 mg tablet,disintegrating 4 mg PO Q8H PRN (Reason: nausea and vomiting) Qty: 30 0RF Discharge Instructions Instructions: Strep Throat (ED), Polysubstance Abuse (ED), Opioid Withdrawal (ED) Additional Instructions: You have strep throat. Today you were treated with penicillin 1,200,000 units IM. Continue medications as prescribed. Please follow-up with [facility] tomorrow if you are not able to establish care at [facility]. CT imaging that was performed this morning revealed questionable SMA syndrome. Please be sure to discuss this with your doctor for referral to general surgery or gastroenterology if your symptoms of nausea and vomiting persist despite treatment of opioid withdrawal. Please contact your primary care physician to arrange follow-up. Return to the ER immediately for any worsening or new concerning symptoms. Referrals: [facility] [Provider Group] [facility] [Outside] Fernando Morgan DO [Primary Care Provider] - Discharge Data Discharge Date/Time-TO BE ENTERED AT DEPARTURE: 04/01/23 11:30 Medical Decision Making 37-year-old male here with complaint of opioid withdrawal. Patient has nausea. He was seen here earlier today for nausea vomiting abdominal discomfort and had comprehensive work-up that did reveal concern for colitis on CT. Patient was found to have significant leukocytosis. He is now noting that he has had sore throat for a few days and does have exam consistent with pharyngitis. Rapid strep testing is positive. Plan to treat with penicillin 1,200,000 units IM. COWS 8. Patient provided informed consent to MAT. MAT initiated with Suboxone 8 mg. Patient was reassessed and resting comfortably. Withdrawal improved. He still feels ill which I think is secondary to strep pharyngitis. There was note of potential SMA syndrome noted on CT in addition to possible colitis. Of note, patient was able to eat a normal breakfast prior to returning here to the ED and is not exhibiting signs of obstruction. He has no significant electrolyte abnormalities that would be consistent with this syndrome. I will refer him to follow-up with gen sx/GI should symptoms persist. Patient reassessed remained stable. He is much improved. He has reached out to [facility] and is attempting to arrange for treatment. I advised that should they not have availability today, he should follow-up tomorrow at [facility]. Usual customary discharge instructions were reviewed with the patient. Imaging Data Radiologic Study: Imaging: CT Scan (abd/pelv) Radiologist's impression: IMPRESSION: 1. ? Fluid-filled small and large bowel, nonspecific but may reflect mild inflammation. Apparent colonic thickening, suboptimally evaluated secondary to incomplete distension but cannot exclude colitis. 2. ? Relative distension of the stomach and proximal duodenum with narrowing in the distal duodenum. Correlate clinically for SMA syndrome. 3. ? Mural prominence of the gallbladder, most likely secondary to contraction. Right upper quadrant ultrasound may be considered if cholecystitis is of clinical concern. Lab Data Lab results reviewed: Yes I reviewed the patient's lab results. Lab results narrative: labs from earlier today review. Leukocytosis noted. HPI General Mode of arrival: ambulatory. Date/Time Provider Initiated Documentation: 04/01/23 08:43. Limitations to Documentation: no limitations. Information obtained by: patient. HPI Narrative: 37-year-old male presents with chief complaint of withdrawal. Patient notes he smokes fentanyl and crack cocaine and is concerned that he is withdrawing. He last used drugs yesterday. Patient is interested in seeking inpatient rehabilitation. He has reached out and waiting to hear back from [facility] today. Patient has been on buprenorphine and in the past approximately 1 year ago and it had worked well for him at that time. Patient also notes abdominal discomfort as well as nausea and vomiting over the past 3 days. He was seen here earlier this morning and had comprehensive diagnostic work-up including labs and CT imaging, diagnosed with colitis and was discharged in stable condition with instruction to start Augmentin. He went to eat breakfast in the cafeteria and returns noting persistent nausea. He is concerned his symptoms are related to opioid withdrawal. Patient denies IV drug use. Patient denies rash or tick bite. He does note sore throat over the past few days. Related Data Home Medications Medication Instructions Recorded Confirmed fluticasone 250 mcg-salmeterol 50 1 inh inhalation BID #60 ea 04/13/22 04/01/23 mcg/dose blistr powdr for inhalation (Advair Diskus) albuterol sulfate 90 mcg/actuation 2 puff inhalation Q6H PRN 09/29/22 04/01/23 aerosol inhaler (Ventolin HFA) shortness of breath or wheezing #8.5 grams amoxicillin 875 mg-potassium 1 tab PO BID #14 tabs 04/01/23 04/01/23 clavulanate 125 mg tablet ondansetron 4 mg disintegrating 4 mg PO Q8H PRN nausea and 04/01/23 04/01/23 tablet vomiting #30 tabs Previous Rx's Medication Instructions Recorded fluticasone 250 mcg-salmeterol 50 1 inh inhalation BID #60 ea 04/13/22 mcg/dose blistr powdr for inhalation (Advair Diskus) albuterol sulfate 90 mcg/actuation 2 puff inhalation Q6H PRN 09/29/22 aerosol inhaler (Ventolin HFA) shortness of breath or wheezing #8.5 grams amoxicillin 875 mg-potassium 1 tab PO BID #14 tabs 04/01/23 clavulanate 125 mg tablet ondansetron 4 mg disintegrating 4 mg PO Q8H PRN nausea and 04/01/23 tablet vomiting #30 tabs Allergies Allergy/AdvReac Type Severity Reaction Status Date / Time pollen extracts Allergy Intermediate asthma Verified 04/01/23 08:03 General Stated Complaint: DrugWithdr/MAT NICK: 3 Review of Systems Constitutional Constitutional: Denies fever(s) ENT Ears, Nose, Mouth, and Throat: Reports as per [facility] All Active Problems (Updated 04/01/23 @ 10:52 by Ritesh Mares MD) Abdominal pain (Acute) Colitis (Acute) Acute streptococcal pharyngitis (Acute) Acute opioid withdrawal (Acute) Opiate dependence (Chronic) Started at [facility] in 2019 Asthma (Chronic) ADHD (Chronic) Marijuana abuse (Chronic) Medical History Acute paronychia of finger of left hand (~08/2022) 10/03/22 DH Derm, L 2nd Finger Social History Smoking/Tobacco Use Status: Never Smoking risk assessment performed?: Yes Alcohol Intake: never Drug use: Daily Substance use type: marijuana, crack/cocaine and heroin Details: Pt states that he uses heroin daily but hasn't in the last 3 days. 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[employer], [employer] Pets and animals: Yes Pets and animals: dog(s) Sexually active: Yes Do you think of yourself as: straight/heterosexual Current gender identity: male What is your relationship status?: living with partner How often do you talk on the phone with friends or family?: three or more times per week How often do you get together with friends or relatives?: once per week Do you belong to any clubs or organized social groups?: no Panel score (0-1 are the most socially isolated patients): 2 What type of physical activity do you participate in: other Details: active when working Duration: > 90 minutes/day Frequency: daily Chanel/Zoroastrian: None Special chanel needs: No Seatbelt use: always Helmet use: Yes Drive intox or ride w/intox 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 Do you feel safe at home: Yes Do you feel safe in your relationship?: Yes Additional Social history: Homeless Exam Const General: cooperative and no acute distress HENMT Mouth: moist mucous membranes Throat: uvula midline and posterior oropharynx abnormal erythema and exudates Other: No trismus Eyes Conjunctivae: normal conjunctivae Sclera: normal sclerae Pupils: PERRL (4mm) Neck Neck: supple Resp Auscultation: clear to auscultation bilaterally, no rales, no rhonchi and no wheezes Cardio Rate: regular rate and not tachycardic Rhythm: regular rhythm Heart Sounds: no murmurs GI Palpation: soft, not firm, no guarding, no masses and not rigid Skin General skin exam: no rashes or lesions noted Neuro General: patient alert, patient awake, patient oriented x3 and tone normal Extrem General: no edema Psych Appearance: grossly normal Mental Status: mental status grossly normal Attitude: cooperative Course Vital Signs Vital signs: Vital Signs Temperature 36.9 C 04/01/23 08:00 Pulse 63 04/01/23 08:00 Respiratory Rate 16 04/01/23 08:00 Blood Pressure 113/75 04/01/23 08:00 Pulse Oximetry 98 04/01/23 08:00 Temperature 36.9 C 04/01/23 08:00 Temperature Source Oral 04/01/23 08:00 Pulse 63 04/01/23 08:00 Respiratory Rate 16 04/01/23 08:00 Respiratory Effort Normal, Non-Labored 04/01/23 09:17 Respiratory Pattern Normal 04/01/23 09:17 Blood Pressure 113/75 04/01/23 08:00 Blood Pressure Position Sitting 04/01/23 08:00 Pulse Oximetry 98 04/01/23 08:00 Oxygen Delivery Method Room Air 04/01/23 08:00 Oxygen Flow Rate 0 04/01/23 08:00 Lab/Test Results Lab/Test Results: POC Strep Test-ZOLTAN(Rapid) Start: 04/01/23 09:15 Freq: .Rapid Strep Test Status: Active Protocol: Document 04/01/23 09:37 TOSHA (Rec: 04/01/23 09:37 TOSHA [id number]) Strep test-ZOLTAN(Rapid)-POC POC-Strep test-ZOLTAN (Rapid) Positive POC-Strep test-ZOLTAN (Rapid) Positive
[2023-04-01 11:29] VITALS: BP 114/65; PULSE 79; RESP 18; O2SAT 98
--- NOTE | 2023-04-01 11:39 | NUR.NOTE ---
Nursing Note: [id number] call to [facility] that patient is started on buprenorphine one 8mg/2mg SL film today. Needs to be seen April 02 for continued buprenorphine dosing. Message left on answering machine.
--- NOTE | 2023-04-01 11:42 | NUR.NOTE ---
Nursing Note: [facility]
== END 2023-04-01 11:30 | disposition home or self-care (01) ==
PROVIDERS: Emergency Provider Student in an Organized Health Care Education/Training Program; PCP Family Medicine
DX: F11.93 Opioid use, unspecified with withdrawal (principal); J02.0 Streptococcal pharyngitis
CPT/HCPCS: 87880; 96372; 99284; J0561

== ENCOUNTER 2023-11-06 07:41 | Emergency (ER) | payer MEDICAID, SELFPAY ==
[2023-11-06 07:46] VITALS: BP 165/90; PULSE 100; RESP 18; TEMP 36.7
--- NOTE | 2023-11-06 08:49 | W.ED.GENAD ---
HPI General Stated Complaint: Laceration NICK: 4 Date/Time Provider Initiated Documentation: 11/06/23 08:03. HPI Narrative: This 38-year-old male presents with report of laceration to his fourth digit on his right foot at 4 AM this morning on a knife that he excellently stepped on. Tetanus is not up-to-date. Denies any strength or sensation change able to range toe per patient. Denies any additional injuries. Related Data Home Medications Medication Instructions Recorded Confirmed fluticasone 250 mcg-salmeterol 50 1 inh inhalation BID #60 ea 04/13/22 04/01/23 mcg/dose blistr powdr for inhalation (Advair Diskus) albuterol sulfate 90 mcg/actuation 2 puff inhalation Q6H PRN 09/29/22 04/01/23 aerosol inhaler (Ventolin HFA) shortness of breath or wheezing #8.5 grams amoxicillin 875 mg-potassium 1 tab PO BID #14 tabs 04/01/23 04/01/23 clavulanate 125 mg tablet ondansetron 4 mg disintegrating 4 mg PO Q8H PRN nausea and 04/01/23 04/01/23 tablet vomiting #30 tabs albuterol sulfate 90 mcg/actuation 1 inh inhalation ONCE #8.5 grams 11/06/23 aerosol inhaler (Ventolin HFA) Previous Rx's Medication Instructions Recorded fluticasone 250 mcg-salmeterol 50 1 inh inhalation BID #60 ea 04/13/22 mcg/dose blistr powdr for inhalation (Advair Diskus) albuterol sulfate 90 mcg/actuation 2 puff inhalation Q6H PRN 09/29/22 aerosol inhaler (Ventolin HFA) shortness of breath or wheezing #8.5 grams amoxicillin 875 mg-potassium 1 tab PO BID #14 tabs 04/01/23 clavulanate 125 mg tablet ondansetron 4 mg disintegrating 4 mg PO Q8H PRN nausea and 04/01/23 tablet vomiting #30 tabs albuterol sulfate 90 mcg/actuation 1 inh inhalation ONCE #8.5 grams 11/06/23 aerosol inhaler (Ventolin HFA) Allergies Allergy/AdvReac Type Severity Reaction Status Date / Time pollen extracts Allergy Intermediate asthma Verified 04/01/23 08:03 PFSH All Active Problems (Updated 11/06/23 @ 08:50 by AMY Ravi) Laceration of toe (Acute) Opiate dependence (Chronic) Started at [facility] in 2019 Asthma (Chronic) ADHD (Chronic) Marijuana abuse (Chronic) Medical History Acute paronychia of finger of left hand (~08/2022) 10/03/22 DH Derm, L 2nd Finger Social History Smoking/Tobacco Use Status: Never Smoking risk assessment performed?: Yes Alcohol Intake: never Drug use: Daily Substance use type: marijuana Household members: significant other and family Housing: house Communication Needs: None Do you need help understanding health information?: Never current occupation: [employer] Pets and animals: Yes Pets and animals: dog(s) Sexually active: Yes Do you think of yourself as: straight/heterosexual Current gender identity: male What is your relationship status?: living with partner How often do you talk on the phone with friends or family?: three or more times per week How often do you get together with friends or relatives?: once per week Do you belong to any clubs or organized social groups?: no Panel score (0-1 are the most socially isolated patients): 2 What type of physical activity do you participate in: other Details: active when working Duration: > 90 minutes/day Frequency: daily Chanel/Islam: None Special chanel needs: No Seatbelt use: always Helmet use: Yes Drive intox or ride w/intox 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 Do you feel safe at home: Yes Do you feel safe in your relationship?: Yes Course Vital Signs Vital signs: Vital Signs Temperature 36.7 C 11/06/23 07:46 Pulse 100 H 11/06/23 07:46 Respiratory Rate 18 11/06/23 07:46 Blood Pressure 165/90 H 11/06/23 07:46 Temperature 36.7 C 11/06/23 07:46 Temperature Source Temporal Artery Scan 11/06/23 07:46 Pulse 100 H 11/06/23 07:46 Respiratory Rate 18 11/06/23 07:46 Respiratory Effort Normal, Non-Labored 11/06/23 07:48 Blood Pressure 165/90 H 01/09/24 07:46 Blood Pressure Position Supine 11/06/23 07:46 Oxygen Delivery Method Room Air 11/06/23 07:46 Oxygen Flow Rate 0 11/06/23 07:46 Procedures Laceration Laceration 1: Site: lower extremity Side (If applicable): right Size (cm): 4 Description: flap Depth: simple, single layer Local Anesthetic: Lidocaine 1% Amount of anesthesia used (mL): 5 Pre-repair: wound explored Skin layer closed with: other Size (cm): 4-0 and 5-0 Number of sutures: 10 Technique: simple, interrupted Medical Decision Making Patient arrives with laceration to fourth digit, approximately 4 cm, accidental injury after stepping on a knife, neurovascularly intact, range of motion intact Wound cleansed, tetanus updated 10 sutures placed, this is a flap and whether or not I will revascularize will reassess when sutures are removed, patient made aware he may need additional intervention I did refill patient's albuterol inhaler at his request and placed him on the list to follow-up with his primary care physician for additional refills No indication for antibiotics Recheck in 48 hours, encouraged to keep dry Suture removal in 12 to 14 days recommended Medical Records Medical records reviewed: Yes I reviewed the patient's medical records. Quality:SDOH Health Related Social Needs: No Data to Display Discharge Plan Disposition Patient Disposition: Home Condition: Stable Discharge Details Clinical Impression: Laceration of toe Primary Care Provider: Fernando Morgan ED Provider: Tierra Pagan Home Meds and New Rx's Prescriptions: New albuterol sulfate [Ventolin HFA] 90 mcg/actuation HFA aerosol inhaler 1 inh inhalation ONCE Qty: 8.5 0RF Continued fluticasone propion-salmeterol [Advair Diskus] 250-50 mcg/dose blister with device 1 inh INHALATION BID Qty: 60 3RF albuterol sulfate [Ventolin HFA] 90 mcg/actuation HFA aerosol inhaler 2 puff inhalation Q6H PRN (Reason: shortness of breath or wheezing) Qty: 8.5 6RF amoxicillin-pot clavulanate 875-125 mg tablet 1 tab PO BID Qty: 14 0RF ondansetron 4 mg tablet,disintegrating 4 mg PO Q8H PRN (Reason: nausea and vomiting) Qty: 30 0RF Discharge Instructions Instructions: Laceration (ED) Additional Instructions: Wash wound every 48 hours unless the wound becomes saturated with water, you should change the dressing every 24 hours Apply Neosporin and keep covered for at least 3 days, after that you should allow to air dry at night Take ibuprofen and Tylenol as needed for pain You received a tetanus immunization today Please return spreading redness, fever, worsening pain Suture removal removal in 12 to 14 days Please call [facility] for follow-up appointment Referrals: Fernando Morgan DO [Primary Care Provider] -
[2023-11-06] MEDS: Tetanus & Diphtheria Tox,ADULT 0.5 ML VIAL IM (09:03)
--- NOTE | 2023-11-07 09:39 | NUR.NOTE ---
Accessed chart: patient called stating that he thought he was supposed to be on antibiotics. He states his leg, knee is swollen, toe is red and has drainage. Per Dr. Alvarado, the drainage is probably a little blood. He can return to his PCP, [facility] or here for re-evaluation. Nursing Note:
== END 2023-11-06 09:05 | disposition home or self-care (01) ==
PROVIDERS: Emergency Provider Physician Assistant; PCP Family Medicine
DX: S91.114A Laceration without foreign body of right lesser toe(s) without damage to nail, initial encounter (principal); W26.0XXA Contact with knife, initial encounter; Z79.899 Other long term (current) drug therapy; J45.909 Unspecified asthma, uncomplicated
CPT/HCPCS: 12002; 90471; 90714; 99284; 99283